=== PATIENT | female | born 1990 | race Caucasian/White ===

== ENCOUNTER 2019-10-10 16:36 | Emergency (ER) | payer OTHER ==
[~2019-10-10] VITALS: Ht 162.6 cm; Wt 89.1 kg
[2019-10-10] MEDS ORDERED: ONDANSETRON 2MG/ML, 2ML IVPush ONE (17:00)
[2019-10-10] MEDS ORDERED: SODIUM CHLORIDE FLUSH 10ML SYR IVF ONE (17:00)
[2019-10-10] MEDS ORDERED: LORazepam 2 MG/ML, 1ML IVPush ONE (17:00)
[2019-10-10] MEDS ORDERED: SODIUM CHLORIDE 0.9% 1,000ML IVBOLUS ONE (17:00)
[2019-10-10 17:12] LABS: BASOPHILS # (AUTO) 0.08 x10^3/uL (0-0.1); BASOPHILS % (AUTO) 1 % (0-1); EOSINOPHILS # (AUTO) 0.08 x10^3/uL (0-0.4); EOSINOPHILS % (AUTO) 1 % (1-7); LYMPHOCYTES # (AUTO) 2.54 x10^3/uL (1-3.4); LYMPHOCYTES % (AUTO) 23 % (22-44); MD NO; MEAN CORPUSCULAR HEMOGLOBIN 26.1 pg (27.0-34.8); MEAN CORPUSCULAR HGB CONC 32.8 g/dL (32.4-35.8); MEAN CORPUSCULAR VOLUME 79.5 fL (80-100); MEAN PLATELET VOLUME 9.8 fL (7.4-10.4); MONOCYTES # (AUTO) 0.53 x10^3/uL (0.2-0.8); MONOCYTES % (AUTO) 5 % (2-9); NEUTROPHILS # (AUTO) 7.84 x10^3/uL (1.8-6.8); NEUTROPHILS % (AUTO) 71 % (42-75); PLATELET COUNT 356 x10^3/uL (130-400); RED BLOOD COUNT 5.47 x10^6/uL (3.82-5.3); RED CELL DISTRIBUTION WIDTH 14.2 % (9.6-15.2)
[2019-10-10 17:22] LABS: ALANINE AMINOTRANSFERASE 30 U/L (12-78); ALBUMIN 3.3 g/dL (3.4-5.0); ANION GAP 11 mmol/L (5-15); CALCIUM 8.8 mg/dL (8.5-10.1); CHLORIDE 109 mmol/L (98-107); CREATININE 0.96 mg/dL (0.55-1.02)
[2019-10-10] MEDS ORDERED: ONDANSETRON 2MG/ML, 2ML ONE (17:26)
[2019-10-10] MEDS ORDERED: LORazepam 2 MG/ML, 1ML ONE (17:26)
[2019-10-10 17:27] LABS: ALKALINE PHOSPHATASE 78 U/L (45-117); TOTAL PROTEIN 7.3 g/dL (6.4-8.2)
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
--- NOTE | 2019-10-10 17:39 | NUR ---
MEDICATED PER OCT FOR NAUSEA AND TO HELP HER RELAX
[2019-10-10 17:56] VITALS: BP 119/66
== END 2019-10-10 19:15 | disposition home or self-care (01) ==
LOC: ED 19:00
DX: K52.9 Noninfective gastroenteritis and colitis, unspecified (principal); E86.0 Dehydration; R11.2 Nausea with vomiting, unspecified
CPT/HCPCS: 36415; 80053; 83690; 84703; 85025; 96361; 96374; 96375; 99284; J2060; J2405; J7030

== ENCOUNTER 2021-02-21 00:31 | Emergency (ER) | payer OTHER ==
[~2021-02-21] VITALS: Ht 162.6 cm; Wt 91.9 kg
--- NOTE | 2021-02-21 00:45 | NUR ---
ERP AT BEDSIDE FOR EVAL
--- NOTE | 2021-02-21 00:48 | NUR ---
REPORT TO [facility] SUPERINTENDENT OF CARE
[2021-02-21] MEDS ORDERED: DIPHENHYDRAMINE 50 MG CAPSULE ONE (00:52)
--- NOTE | 2021-02-21 00:55 | NUR ---
Medicated per order.
[2021-02-21] MEDS ORDERED: DIPHENHYDRAMINE 50 MG CAPSULE PO ONE (01:00)
[2021-02-21 01:41] VITALS: BP 122/84
--- NOTE | 2021-02-21 01:41 | NUR ---
Patient given discharge instructions and they have confirmed that they understand the instructions. Patient ambulatory with steady gait.
== END 2021-02-21 02:34 | disposition home or self-care (01) ==
LOC: ED 01:01
DX: R21 Rash and other nonspecific skin eruption (principal); T78.40XA Allergy, unspecified, initial encounter
CPT/HCPCS: 99282